=== PATIENT | female | born 1955 | race Caucasian/White ===

== ENCOUNTER 2023-11-22 09:50 | Day surgery (SDC) | payer BC ==
[2023-11-14 10:48] VITALS: BMI 23.2
[2023-11-22 10:12] VITALS: TEMP 97.1
[2023-11-22 12:05] VITALS: BP 130/70; PULSE 72; RESP 20
== END 2023-11-22 12:15 | disposition home or self-care (01) ==
LOC: FASU-ENDO 09:50
PROVIDERS: ATTEND Internal Medicine Gastroenterology
PROC: 0DBL8ZX Excision of Transverse Colon, Via Natural or Artificial Opening Endoscopic, Diagnostic (ICD-10-PCS; principal; 2023-11-22 11:18)
DX: Z12.11 Encounter for screening for malignant neoplasm of colon (principal); D12.3 Benign neoplasm of transverse colon; K64.1 Second degree hemorrhoids
CPT/HCPCS: 88305-TC